=== PATIENT | female | born 1930 | race Caucasian/White ===

== ENCOUNTER 2017-06-12 15:35 | Emergency (ER) | payer MEDICARE, OTHER ==
[~2017-06-12] VITALS: Ht 152.4 cm; Wt 59.1 kg
[~2017-06-12 15:35] MED LIST: AMBIEN 5MG TABLE5 MG PO; DITROPAN 5MG TAB5 MG PO; HYZAAR 50-12.1 UDTAB PO; MEVACOR 20M20 MG/TAB PO; PRILOSEC 20MG20 MG PO; RT ADVAIR 228 DISKUS IH; VOLTAREN-XR100 MG PO
[2017-06-12 15:38] VITALS: TEMP 99
[2017-06-12 16:42] VITALS: BP 144/80; PULSE 76
== END 2017-06-12 16:46 | disposition home or self-care (01) ==
LOC: COL.ER 15:35
DX: S01.81XA Laceration without foreign body of other part of head, initial encounter (principal); E11.9 Type 2 diabetes mellitus without complications; I10 Essential (primary) hypertension; Z79.51 Long term (current) use of inhaled steroids; W01.0XXA Fall on same level from slipping, tripping and stumbling without subsequent striking against object, initial encounter

== ENCOUNTER 2019-06-02 12:35 | Emergency (ER) | payer MEDICARE, OTHER ==
[~2019-06-02] VITALS: Ht 152.4 cm; Wt 56.8 kg
[2019-06-02 14:25] LABS: ALBUMIN 4.1 gm/dL (3.5-5.0); BILIRUBIN,TOTAL 0.5 mg/dL (0.0-1.0); CALCIUM 8.9 mg/dL (8.4-10.2); CREATININE, serum 0.64 (0.52-1.25); POTASSIUM 4.5 mmol/L (3.4-5.0); TOTAL PROTEIN 6.9 gm/dL (6.4-8.2)
[2019-06-02 14:35] LABS: INR 0.9 (0.8-3.0)
[2019-06-02 14:43] LABS: BASO % 0.5 % (0.0-2.0); EOS # 0.1 (0.0-0.7); EOS % 0.9 % (0-4.0); GRAN # 6.4 (1.4-6.5); GRAN % 81.5 % (42.2-75.2); HEMATOCRIT 37.5 % (37.0-47.0); HEMOGLOBIN 12.5 g/dl (12.5-16.0); LYMPH # 0.7 (1.2-3.4); LYMPH % 8.7 % (20.0-51.0); MEAN CELL VOLUME 97 fl (80.0-100.0); MEAN CORPUSCULAR HEMOGLOBIN 32 pg (27.0-31.0); MEAN CORPUSCULAR HGB CONC 33 g/dl (33.0-37.0); MEAN PLATELET VOLUME 10.7 fl (7.4-10.4); MONO # 0.6 (0.1-0.6); MONO % 8.1 % (1.7-9.3); PLATELET COUNT 277 K/mm3 (130-400); RED BLOOD COUNT 3.87 M/mm3 (4.10-5.30); REDCELL DISTRIBUTION WIDTH-CV 13.2 % (11.5-14.5)
--- NOTE | 2019-06-02 15:41 | NUR ---
GIOVANNY received a cll from patients nurse due to patient falling at her home. Nurse reports that doctor is recommending transporting patient to [facility] for further evaluation. patient wishes to go home. Giovanny met with patient franco Sexton at her bedside. patient gave verbal permission for her to be present during the interview. patient indicated that they moved to [facility] from [place] about 4 years ago. Patient reported that she wants to go h ome because her has some appointments next week that she has to ensure that he gets to. patient did speak to her daughter in law [phone], who encouraged patient to go to the hospital. Patient indicated that her daughter in law and son will be able to convence her to go when they get here. GIOVANNY informed patient of services that [facility] could provide for patients while she was in [place]. GIOVANNY spoke to Hope and she informed SW that they would be able to move into [facility] where he would receive 24 hour care from nursing staff and their doctor. Cost would be out of pocket for patient, however Hope reported that they MAY HAVE a program called "[employer]," that may be able to help with the original cost of 373.00 a day. GIOVANNY informed patient of t his, and received verbal permission to contact Aubrie at [phone] to inform her of this information. GIOVANNY did try to contact Aubrie, however there was no answer. GIOVANNY did contact Hope to follow up, Hope asked to be informed if she needed to begin the steps to provide this service. GIOVANNY contacted Emergency Dept and asked them to give Aubrie the care coordination phone number to contact. Social Work will continue to monitor.
[2019-06-02 17:24] VITALS: BP 137/54; PULSE 67; TEMP 98.8
== END 2019-06-02 17:24 | disposition short-term general hospital (02) ==
LOC: COL.ER 12:35
PROVIDERS: Emergency Medicine
DX: S06.5X0A Traumatic subdural hemorrhage without loss of consciousness, initial encounter (principal); S01.81XA Laceration without foreign body of other part of head, initial encounter; Z90.710 Acquired absence of both cervix and uterus; Z79.51 Long term (current) use of inhaled steroids; W01.0XXA Fall on same level from slipping, tripping and stumbling without subsequent striking against object, initial encounter; Y92.009 Unspecified place in unspecified non-institutional (private) residence as the place of occurrence of the external cause
CPT/HCPCS: J1953; J7050

== ENCOUNTER → 2019-06-17 | Emergency (ER) | payer MEDICARE, OTHER ==
[~2019-06-17] VITALS: Ht 152.4 cm; Wt 55.9 kg
[2019-06-17 16:34] LABS: COLLECTION METHOD CLEAN CATCH
[2019-06-17 16:36] LABS: BASO % 0.5 % (0.0-2.0); EOS # 0.1 (0.0-0.7); EOS % 0.8 % (0-4.0); GRAN # 6.9 (1.4-6.5); GRAN % 80.8 % (42.2-75.2); HEMOGLOBIN 12.1 g/dl (12.5-16.0); LYMPH # 0.6 (1.2-3.4); LYMPH % 7.2 % (20.0-51.0); MEAN CELL VOLUME 97 fl (80.0-100.0); MEAN CORPUSCULAR HEMOGLOBIN 33 pg (27.0-31.0); MEAN CORPUSCULAR HGB CONC 34 g/dl (33.0-37.0); MONO # 0.9 (0.1-0.6); MONO % 10.5 % (1.7-9.3); PLATELET COUNT 314 K/mm3 (130-400); REDCELL DISTRIBUTION WIDTH-CV 12.5 % (11.5-14.5)
[2019-06-17 16:41] LABS: HEMATOCRIT 35.9 % (37.0-47.0)
[2019-06-17 16:43] LABS: PROTHROMBIN TIME 11.9 SECONDS (9.7-12.8)
[2019-06-17 16:45] LABS: PARTIAL THROMBOPLASTIN TIME 30.3 SECONDS (26.0-37.0)
[2019-06-17 16:46] LABS: MUCOUS Present /lpf; PH 7 (5-8); SQUAMOUS EPITHELIAL 0-2 /hpf; URINE APPEARANCE Cloudy; URINE BACTERIA Rare /hpf; URINE BILIRUBIN Negative (NEGATIVE); URINE BLOOD Negative (NEGATIVE); URINE COLOR Yellow; URINE GLUCOSE Negative (NEGATIVE); URINE KETONE Negative (NEGATIVE); URINE LEUKOCYTE ESTERASE 3+ (NEGATIVE); URINE NITRATE Negative (NEGATIVE); URINE PROTEIN(semi-quant) Negative (NEGATIVE); URINE UROBILINOGEN Negative (NEGATIVE)
[2019-06-17 16:53] LABS: ALBUMIN 4.1 gm/dL (3.5-5.0); BILIRUBIN,TOTAL 0.3 mg/dL (0.0-1.0); C-REACTIVE PROTEIN 2.6 mg/dL (0.0-0.9); CALCIUM 9.3 mg/dL (8.4-10.2); CREATININE, serum 0.68 (0.52-1.25); POTASSIUM 3.5 mmol/L (3.4-5.0); TOTAL PROTEIN 7.3 gm/dL (6.4-8.2)
[2019-06-17 17:26] VITALS: BP 144/55; PULSE 65; TEMP 98.4
== END ==
LOC: COL.ER 14:59
PROVIDERS: Emergency Medicine
DX: S06.5X9A Traumatic subdural hemorrhage with loss of consciousness of unspecified duration, initial encounter (principal); R40.2412 Glasgow coma scale score 13-15, at arrival to emergency department; I10 Essential (primary) hypertension; J44.9 Chronic obstructive pulmonary disease, unspecified; I25.10 Atherosclerotic heart disease of native coronary artery without angina pectoris; Z79.51 Long term (current) use of inhaled steroids; W01.198A Fall on same level from slipping, tripping and stumbling with subsequent striking against other object, initial encounter; Y92.009 Unspecified place in unspecified non-institutional (private) residence as the place of occurrence of the external cause
CPT/HCPCS: J1953; J7030

== ENCOUNTER 2019-08-24 06:00 | Emergency (ER) | payer MEDICARE ==
[~2019-08-24] VITALS: Ht 152.4 cm; Wt 54.5 kg
[2019-08-24 06:04] VITALS: TEMP 97.2
[2019-08-24 06:56] LABS: BASO % 0.5 % (0.0-2.0); EOS # 0.1 (0.0-0.7); EOS % 0.7 % (0-4.0); GRAN # 6.8 (1.4-6.5); GRAN % 83.9 % (42.2-75.2); HEMATOCRIT 38.7 % (37.0-47.0); HEMOGLOBIN 12.6 g/dl (12.5-16.0); LYMPH # 0.6 (1.2-3.4); LYMPH % 7.4 % (20.0-51.0); MEAN CELL VOLUME 95 fl (80.0-100.0); MEAN CORPUSCULAR HEMOGLOBIN 31 pg (27.0-31.0); MEAN CORPUSCULAR HGB CONC 33 g/dl (33.0-37.0); MEAN PLATELET VOLUME 9.1 fl (7.4-10.4); MONO # 0.6 (0.1-0.6); MONO % 6.9 % (1.7-9.3); PLATELET COUNT 241 K/mm3 (130-400); RED BLOOD COUNT 4.06 M/mm3 (4.10-5.30); REDCELL DISTRIBUTION WIDTH-CV 12.2 % (11.5-14.5)
[2019-08-24 07:06] LABS: ALANINE AMINOTRANSFERASE 14 U/L (4-34); ALBUMIN 4.2 gm/dL (3.5-5.0); ALKALINE PHOSPHATASE 97 U/L (50-136); ANION GAP 7 mmol/L (7-16); AST,SGOT 24 U/L (15-37); BILIRUBIN,TOTAL 0.4 mg/dL (0.0-1.0); BLOOD UREA NITROGEN 16 mg/dL (7-17); CALCIUM 9.5 mg/dL (8.4-10.2); CARBON DIOXIDE 27 mmol/L (22-30); CHLORIDE 100 mmol/L (98-107); CREATININE, serum 0.62 (0.52-1.25); GLUCOSE 117 mg/dL (74-106); POTASSIUM 3.9 mmol/L (3.4-5.0); SODIUM 134 mmol/L (137-145); TOTAL PROTEIN 7.2 gm/dL (6.4-8.2)
[2019-08-24 07:08] LABS: INR 0.9 (0.8-3.0); PROTHROMBIN TIME 10.3 SECONDS (9.7-12.8)
[2019-08-24 07:17] LABS: TROPONIN-I < 0.012 ng/mL (0.000-0.035)
[2019-08-24 10:07] VITALS: BP 161/69; PULSE 65
== END 2019-08-24 10:10 | disposition home or self-care (01) ==
LOC: COL.ER 06:00
PROVIDERS: Emergency Medicine
DX: S09.90XA Unspecified injury of head, initial encounter (principal); S01.01XA Laceration without foreign body of scalp, initial encounter; R40.2410 Glasgow coma scale score 13-15, unspecified time; Z23 Encounter for immunization; Z79.51 Long term (current) use of inhaled steroids; W10.1XXA Fall (on)(from) sidewalk curb, initial encounter; Y92.129 Unspecified place in nursing home as the place of occurrence of the external cause

== ENCOUNTER → 2020-04-06 | Outpatient (CLI) | payer MEDICARE | LOC: ZCOL.LAB 20:38 | DX: L03.116 Cellulitis of left lower limb (principal) ==

== ENCOUNTER → 2020-04-06 | Outpatient (CLI) | payer MEDICARE | LOC: ZCOL.LAB 20:45 | DX: L03.116 Cellulitis of left lower limb (principal) ==

== ENCOUNTER 2021-04-18 14:40 | Emergency (ER) | payer MEDICARE ==
[~2021-04-18] VITALS: Ht 152.4 cm; Wt 50.9 kg
[2021-04-18 15:52] VITALS: BP 138/88; PULSE 79; TEMP 98.1
== END 2021-04-18 15:55 | disposition home or self-care (01) ==
LOC: COL.ER 14:40
DX: S41.112A Laceration without foreign body of left upper arm, initial encounter (principal); I10 Essential (primary) hypertension; K21.9 Gastro-esophageal reflux disease without esophagitis; Z79.899 Other long term (current) drug therapy; X58.XXXA Exposure to other specified factors, initial encounter

== ENCOUNTER 2021-06-13 23:23 | Emergency (ER) | payer MEDICARE ==
[~2021-06-13] VITALS: Ht 152.4 cm; Wt 45.5 kg
[2021-06-13 23:24] VITALS: TEMP 98.3
[2021-06-14 00:54] LABS: BASO % 0.3 % (0.0-2.0); EOS # 0.1 K/mm3 (0.0-0.7); EOS % 0.8 % (0.0-4.0); GRAN # 8.3 K/mm3 (1.4-6.5); GRAN % 85.1 % (42.2-75.2); LYMPH # 0.5 K/mm3 (1.2-3.4); LYMPH % 4.7 % (20.0-51.0); MEAN CELL VOLUME 101 fl (80.0-100.0); MEAN CORPUSCULAR HEMOGLOBIN 35 pg (27-31); MEAN CORPUSCULAR HGB CONC 34 g/dl (33.0-37.0); MEAN PLATELET VOLUME 9.1 fl (7.4-10.4); MONO # 0.9 K/mm3 (0.1-0.6); MONO % 8.7 % (1.7-9.3); PLATELET COUNT 246 K/mm3 (130-400); RED BLOOD COUNT 3.17 M/mm3 (4.10-5.30); REDCELL DISTRIBUTION WIDTH-CV 11.9 % (11.5-14.5)
[2021-06-14 00:56] LABS: HEMATOCRIT 32.1 % (37.0-47.0)
[2021-06-14 01:14] LABS: ALBUMIN 3.6 gm/dL (3.4-4.8); BILIRUBIN,TOTAL 0.2 mg/dL (0.2-1.2); CALCIUM 9.6 mg/dL (8.4-10.2); CREATININE, serum 0.88 mg/dL (0.57-1.11); POTASSIUM 3.6 mmol/L (3.5-4.5); TOTAL PROTEIN 6.3 gm/dL (6.2-8.1)
[2021-06-14 01:20] LABS: TROPONIN-I 0.031 ng/mL (0.00-0.033)
[2021-06-14 02:12] LABS: COLLECTION METHOD CLEAN CATCH
[2021-06-14 02:18] LABS: PH 7 (5-8); SQUAMOUS EPITHELIAL 0-2 /hpf (0-10); URINE APPEARANCE Hazy (CLEAR/HAZY); URINE BACTERIA Rare /hpf (NONE SEEN); URINE BILIRUBIN Negative (NEGATIVE); URINE BLOOD 2+ (NEGATIVE); URINE COLOR Yellow (YELLOW); URINE GLUCOSE Negative (NEGATIVE); URINE KETONE Negative (NEGATIVE); URINE LEUKOCYTE ESTERASE Negative (NEGATIVE); URINE NITRATE Negative (NEGATIVE); URINE PROTEIN(semi-quant) Negative (NEGATIVE); URINE UROBILINOGEN Negative (NEGATIVE); URINE WBC 0-2 /hpf (0-2)
[2021-06-14 02:40] VITALS: BP 151/88; PULSE 88
== END 2021-06-14 02:40 | disposition home or self-care (01) ==
LOC: COL.ER 23:23
PROVIDERS: Emergency Medicine
DX: S01.01XA Laceration without foreign body of scalp, initial encounter (principal); F03.90 Unspecified dementia, unspecified severity, without behavioral disturbance, psychotic disturbance, mood disturbance, and anxiety; I10 Essential (primary) hypertension; K21.9 Gastro-esophageal reflux disease without esophagitis; Z79.899 Other long term (current) drug therapy; W19.XXXA Unspecified fall, initial encounter